=== PATIENT | female | born 1935 | race Caucasian/White ===

== ENCOUNTER → 2021-01-23 | Outpatient (CLI) | payer OTHER | LOC: HYPER 09:45 | PROVIDERS: ATTEND Emergency Medicine Emergency Medical Services | DX: L89.623 Pressure ulcer of left heel, stage 3 (principal); L89.153 Pressure ulcer of sacral region, stage 3; M62.81 Muscle weakness (generalized); M21.371 Foot drop, right foot; M48.061 Spinal stenosis, lumbar region without neurogenic claudication; M81.0 Age-related osteoporosis without current pathological fracture; M85.80 Other specified disorders of bone density and structure, unspecified site; R26.2 Difficulty in walking, not elsewhere classified; R41.841 Cognitive communication deficit; E78.5 Hyperlipidemia, unspecified; E03.9 Hypothyroidism, unspecified; I25.10 Atherosclerotic heart disease of native coronary artery without angina pectoris; I48.91 Unspecified atrial fibrillation; I10 Essential (primary) hypertension; I70.90 Unspecified atherosclerosis; G40.909 Epilepsy, unspecified, not intractable, without status epilepticus; H40.9 Unspecified glaucoma; Z95.1 Presence of aortocoronary bypass graft ==

== ENCOUNTER → 2021-02-18 | Outpatient (CLI) | payer OTHER | LOC: HYPER 08:26 | PROVIDERS: ATTEND Emergency Medicine | DX: L89.623 Pressure ulcer of left heel, stage 3 (principal); L89.154 Pressure ulcer of sacral region, stage 4; L89.523 Pressure ulcer of left ankle, stage 3; L84 Corns and callosities; M62.81 Muscle weakness (generalized); M21.371 Foot drop, right foot; M48.061 Spinal stenosis, lumbar region without neurogenic claudication; M81.0 Age-related osteoporosis without current pathological fracture; M85.80 Other specified disorders of bone density and structure, unspecified site; R26.2 Difficulty in walking, not elsewhere classified; R41.841 Cognitive communication deficit; E78.5 Hyperlipidemia, unspecified; E03.9 Hypothyroidism, unspecified; I25.10 Atherosclerotic heart disease of native coronary artery without angina pectoris; I48.91 Unspecified atrial fibrillation; I10 Essential (primary) hypertension; I70.90 Unspecified atherosclerosis; G40.909 Epilepsy, unspecified, not intractable, without status epilepticus; H40.9 Unspecified glaucoma; Z95.1 Presence of aortocoronary bypass graft ==

== ENCOUNTER → 2021-03-03 | Outpatient (CLI) | payer OTHER | LOC: HYPER 09:19 | PROVIDERS: ATTEND Emergency Medicine | DX: L89.623 Pressure ulcer of left heel, stage 3 (principal); L89.154 Pressure ulcer of sacral region, stage 4; L89.523 Pressure ulcer of left ankle, stage 3; L84 Corns and callosities; M62.81 Muscle weakness (generalized); M21.371 Foot drop, right foot; M48.061 Spinal stenosis, lumbar region without neurogenic claudication; M81.0 Age-related osteoporosis without current pathological fracture; M85.80 Other specified disorders of bone density and structure, unspecified site; R26.2 Difficulty in walking, not elsewhere classified; R41.841 Cognitive communication deficit; E03.9 Hypothyroidism, unspecified; I25.10 Atherosclerotic heart disease of native coronary artery without angina pectoris; I48.91 Unspecified atrial fibrillation; I10 Essential (primary) hypertension; I70.90 Unspecified atherosclerosis; G40.909 Epilepsy, unspecified, not intractable, without status epilepticus; H40.9 Unspecified glaucoma; Z95.1 Presence of aortocoronary bypass graft; E78.5 Hyperlipidemia, unspecified ==

== ENCOUNTER → 2021-03-17 | Outpatient (CLI) | payer OTHER | LOC: HYPER 08:50 | PROVIDERS: ATTEND Emergency Medicine | DX: L89.623 Pressure ulcer of left heel, stage 3 (principal); L89.154 Pressure ulcer of sacral region, stage 4; L89.523 Pressure ulcer of left ankle, stage 3; L84 Corns and callosities; R26.2 Difficulty in walking, not elsewhere classified; R41.841 Cognitive communication deficit; E78.5 Hyperlipidemia, unspecified; E03.9 Hypothyroidism, unspecified; I25.10 Atherosclerotic heart disease of native coronary artery without angina pectoris; I48.91 Unspecified atrial fibrillation; I10 Essential (primary) hypertension; I70.90 Unspecified atherosclerosis; G40.909 Epilepsy, unspecified, not intractable, without status epilepticus; H40.9 Unspecified glaucoma; M62.81 Muscle weakness (generalized); M21.371 Foot drop, right foot; M48.061 Spinal stenosis, lumbar region without neurogenic claudication; M81.0 Age-related osteoporosis without current pathological fracture; M85.80 Other specified disorders of bone density and structure, unspecified site; Z95.1 Presence of aortocoronary bypass graft ==